=== PATIENT | female | born 1985 | race African-American/Black ===

== ENCOUNTER 2018-08-04 06:27 | Day surgery (SDC) | payer OTHER ==
[~2018-08-04 06:27] MED LIST: CEFAZOLIN 1 GM/D5W RTU 1 GM/50 ML RTUPB IV PRN
[2018-08-04] MEDS ORDERED: MIDAZOLAM 2 MG/2 ML INJ ONE (06:57)
[2018-08-04] MEDS ORDERED: PROPOFOL INJ 200 MG/20 ML VIAL IV ONE ×2 (06:58→07:58)
[2018-08-04] MEDS ORDERED: FENTANYL CITRATE INJ/PF 100 MCG/2 ML AMPUL ONE (06:58)
[2018-08-04] MEDS ORDERED: ACETAMINOPHEN 1,000 MG/100 ML RTUPB IV ONE (06:58)
[2018-08-04] MEDS ORDERED: LIDOCAINE 0.5% INJ-PF (5 MG/ML) 50 ML SDV ONE (06:58)
[2018-08-04] MEDS ORDERED: NORMAL SALINE INJ/PF 0.9% 10 ML SDV ONE (07:11)
[2018-08-04] MEDS ORDERED: BUPIVACAINE HCL 0.5 % INJ/PF 30 ML SDV ONE (07:11)
[2018-08-04] MEDS ORDERED: BUPIVACAINE INJ/PF LIPOSOME/PF 266 MG/20 ML SDV ONE (07:11)
[2018-08-04] MEDS ORDERED: BACITRACIN INJ 50,000 UNIT VIAL ONE (07:11)
[2018-08-04] MEDS ORDERED: POLYMYXIN B SULFATE INJ 500000 UNIT VIAL ONE (07:11)
[2018-08-04] MEDS ORDERED: LIDOCAINE 2% INJ (20 MG/ML) 20 ML MDV ONE (07:11)
--- NOTE | 2018-08-04 09:54 | [facility] OPERATIVE REPORT E ---
[facility] Operative Report NAME: PAT MANNING AGE: 33Y DATE OF SURGERY: 08/04/2018 ROOM: PREOPERATIVE DIAGNOSES: 1. MALLET TOE DEFORMITY, SECOND DIGIT, RIGHT FOOT. 2. MALLET TOE DEFORMITY SECOND DIGIT, LEFT FOOT. POSTOPERATIVE DIAGNOSIS: 1. MALLET TOE DEFORMITY, SECOND DIGIT, RIGHT FOOT. 2. MALLET TOE DEFORMITY SECOND DIGIT, LEFT FOOT. OPERATION: 1. Arthroplasty at the distal interphalangeal joint, second digit right foot. 2. Arthroplasty at the distal interphalangeal joint, second digit left foot. SURGEON: BRANDAN CHACON DPM [employer] ANCHOR: Calvin Solis DPM PROCEDURE: Following the induction of IV regional local anesthesia, the left and right feet were prepped and draped in the usual sterile manner. A pneumatic tourniquet was placed around both ankles. The right pneumatic tourniquet was inflated to 250 mmHg after exsanguination of limb via Esmarch bandage. The following surgical procedure was then performed: Arthroplasty at the distal interphalangeal joint second digit right foot. Attention was directed to the second digit dorsal aspect of the second digit of the right foot where 2 semi elliptical, transverse incisions were made, encircling the corn that was at the distal interphalangeal joint. The resulting skin wedge was removed en toto from the wound. The extensor digitorum longus tendon was cut in a transverse fashion and reflected proximally from the head of the middle phalanx, utilizing a Tahir bone cutting forceps the hypertrophied head of the middle phalanx was osteotomized perpendicular to long axis of bone and removed en toto from the wound. It was noted that more bone needed to be removed, a rongeur was used to remove additional bone from the middle phalanx. The middle phalanx was then rasped smooth utilizing a hand-held cross-cut rasp. The area was then flushed with copious amounts of an antibacterial saline solution. The extensor digitorum longus tendon was then coapted and maintained utilizing a simple interrupted suture of 3-0 Vicryl. The skin was then coapted and maintained utilizing horizontal mattress sutures of 5-0 nylon. A dry sterile dressing was then applied consisting of Alvaro's silk and conform. Next procedure: Attention was directed to the left foot where the left pneumatic tourniquet was then inflated to 250 mmHg after exsanguination of the limb via Esmarch bandage. The following surgical procedure was then performed: Arthroplasty of the second digit or the distal interphalangeal joint, left foot. Attention was directed to the dorsal aspect of the second digit at the distal interphalangeal joint where 2 semi elliptical incisions were made, enclosing a corn. The resulting transverse semi-elliptical skin wedge was removed en toto from the wound. The extensor longus tendon was then transected in a transverse manner and reflected proximally from the head of the middle phalanx. Utilizing a GiveNext bone cutting forceps, the hypertrophied head of the middle phalanx was osteotomized perpendicular to the long axis of the bone and was then removed en toto from the wound. The middle phalanx was then rasped smooth utilizing a hand-held cross-cut rasp. The area was then flushed with copious amounts of an antibacterial saline solution. The extensor tendon was then coapted and maintained utilizing a simple interrupted suture of 3-0 Vicryl and the skin was coapted and maintained utilizing horizontal mattress sutures of 5-0 nylon. A dry sterile dressing was then applied consisting of Alvaro's silk, 4 x 4s, Conform, Kerlix, and Coban. Pneumatic tourniquet was then released on the left and attention was directed back to the right foot where Kerlix and Coflex were both applied and the tourniquet was released. It was noted the digits were warm and viable on both feet and the patient was transferred to the recovery room. DICTATING PHYSICIAN: BRANDAN CHACON D.P.M. [id number] PHY#: [id number] ID: [id number] JOB#: [id number] ACCT: [id number] cc:SHIRLEY BAGLEY
--- NOTE | 2018-08-04 13:29 | [facility] DISCHARGE SUMMARY E ---
[facility] Discharge Summary NAME: PAT MANNING AGE: 33Y ADMITTED: 08/04/2018 DISCHARGED: SURGICAL PROCEDURES: 1. Arthroplasty at the distal interphalangeal joint, second digit, right foot. 2. Arthroplasty at the distal interphalangeal joint, second digit, left foot. POSTOPERATIVE DIAGNOSES: 1. Mallet toe deformity, right foot, second digit. 2. Mallet toe deformity second digit, left foot. SURGEON: Ramona Fountain D.P.M. SUPERINTENDENT CIRCUS: Calvin Solis D.P.M. SUMMARY: The patient was admitted to [facility] with chief complaint of painful corns on her second toes. X-rays showed that she had elongated middle phalanx, which was causing the mallet toe deformity. The patient desired to have this problem surgically corrected. She underwent the above surgical procedures without any complications and was transferred to the recovery room. She was discharged with surgical shoes, ice packs, postoperative instructions, and postoperative prescriptions for Percocet 5/325 mg, #20, and Phenergan 25 mg, #10. She was given a followup appointment in doctor's office for 08/10/2018 and the patient was discharged from [facility]. DICTATING PHYSICIAN: RAMONA FOUNTAIN D.P.M. [id number] PHY#: [id number] ID: [id number] JOB#: [id number] ACCT: [id number] cc:RAMONA FOUNTAIN DPM >
== END 2018-08-04 09:50 | disposition home or self-care (01) ==
LOC: SC 06:27
PROVIDERS: ATTEND Podiatrist Foot Surgery
DX: M20.41 Other hammer toe(s) (acquired), right foot (principal); M20.42 Other hammer toe(s) (acquired), left foot
CPT/HCPCS: 28285 ×2; J2250; J3490 ×6; J0690; J3010; J2704; J0131; 1480; C9290